=== PATIENT | female | born 1990 | race Caucasian/White ===

== ENCOUNTER 2020-01-22 10:46 | Emergency (ER) | payer MEDICAID, OTHER ==
[~2020-01-22] VITALS: Ht 162.6 cm; Wt 147.3 kg
[~2020-01-22 10:46] MED LIST: AMIT10TA6 PO; CLIN-97 PO; HYDR-4383 PO; ONDA4TAB12 PO
[2020-01-22 10:52] VITALS: BP 150/79
[2020-01-22] MEDS ORDERED: iohexol 300mg/ml 100ml inj. ONE (12:30)
[2020-01-22 13:05] LABS: BASOPHILS % (AUTO) 0.6 % (0-1); EOSINOPHILS # (AUTO) 0.1 X10'3 (0-0.9); HEMATOCRIT 34.5 % (35.0-45.0); HEMOGLOBIN 10.5 g/dl (12.0-16.0); LYMPHOCYTES # (AUTO) 1.9 X10'3 (1.1-4.8); LYMPHOCYTES % (AUTO) 29.1 % (21-51); MEAN CORPUSCULAR HEMOGLOBIN 22.2 PG (27.0-31.0); MEAN CORPUSCULAR HGB CONC 30.5 g/dL (33.0-36.5); MEAN CORPUSCULAR VOLUME 72.6 FL (78-98); MEAN PLATELET VOLUME 9.7 FL (7.4-10.4); MONOCYTES # (AUTO) 0.4 X10'3 (0-0.9); MONOCYTES % (AUTO) 6.1 % (2-12); NEUTROPHILS % (AUTO) 62.2 % (42-75); PLATELET COUNT 239 X10'3 (140-440); RED BLOOD COUNT 4.75 X10'6 (4.20-5.60); RED CELL DISTRIBUTION WIDTH 19.6 % (11.5-14.5); WHITE BLOOD COUNT 6.5 X10'3 (4.5-11.0)
[2020-01-22] MEDS ORDERED: LIDOcaine 1% W/epiNEPHrine 1:200,000 10ml vial IJ ONE (13:15)
[2020-01-22 13:21] LABS: ALANINE AMINOTRANSFERASE 41 U/L (12-78); ALBUMIN 3.5 G/DL (3.4-5.0); ALBUMIN/GLOBULIN RATIO 0.9 (1.1-1.5); ALKALINE PHOSPHATASE 76 IU/L (46-116); ANION GAP 6 (8-16); ASPARTATE AMINO TRANSFERASE 24 U/L (10-37); BILIRUBIN,TOTAL 0.5 MG/DL (0.1-1.0); BLOOD UREA NITROGEN 9 MG/DL (7-18); BUN/CREATININE RATIO 11.4 (6.6-38.0); CALCIUM 8.7 MG/DL (8.5-10.1); CHLORIDE 107 MMOL/L (99-107); CREATININE 0.79 MG/DL (0.40-0.90); GLUCOSE 94 MG/DL (70-104); SODIUM 142 MMOL/L (135-145); TOTAL CARBON DIOXIDE 28.6 MMOL/L (24-32); TOTAL PROTEIN 7.3 G/DL (6.4-8.2); eGFR 87 ML/MIN
[2020-01-22 14:06] LABS: ANISOCYTOSIS 2+; HYPOCHROMASIA 1+; PLATELET ESTIMATE NORMAL; POLYCHROMASIA FEW
[2020-01-22 14:07] LABS: ELLIPTOCYTES FEW; MICROCYTOSIS 1+
[2020-01-22 14:21] LABS: URINE HCG NEGATIVE (NEG)
[2020-01-22] MEDS ORDERED: CLIN300C54 PO (14:36)
[2020-01-22] MEDS ORDERED: HYDR-4353 PO (14:36)
== END 2020-01-22 15:27 | disposition home or self-care (01) ==
LOC: ER 10:46
DX: K04.7 Periapical abscess without sinus (principal); L02.11 Cutaneous abscess of neck; J45.909 Unspecified asthma, uncomplicated; F32.9 Major depressive disorder, single episode, unspecified; Z88.2 Allergy status to sulfonamides; Z79.899 Other long term (current) drug therapy
CPT/HCPCS: 10060; 36415; 70491; 80053; 81025; 85025; 87070; 99285; Q9967

== ENCOUNTER 2020-03-19 21:30 | Emergency (ER) | payer MEDICAID, OTHER ==
[~2020-03-19] VITALS: Ht 162.6 cm; Wt 150.0 kg
--- NOTE | 2020-03-19 22:29 | NUR ---
ATTEMPTING LINE PLACEMENT. TWO RNS HAVE ATTEMPTED WITH A THIRD RN ATTEMPTING.
[2020-03-19 22:36] LABS: URINE HCG NEGATIVE (NEG)
[2020-03-19 23:10] LABS: BASOPHILS % (AUTO) 0.6 % (0-1); EOSINOPHILS # (AUTO) 0.1 X10'3 (0-0.9); EOSINOPHILS % (AUTO) 1.9 % (0-6); HEMATOCRIT 33.5 % (35.0-45.0); HEMOGLOBIN 10.4 g/dl (12.0-16.0); LYMPHOCYTES # (AUTO) 2.1 X10'3 (1.1-4.8); LYMPHOCYTES % (AUTO) 29.7 % (21-51); MEAN CORPUSCULAR HGB CONC 30.9 g/dL (33.0-36.5); MEAN CORPUSCULAR VOLUME 74.2 FL (78-98); MEAN PLATELET VOLUME 9.7 FL (7.4-10.4); MONOCYTES # (AUTO) 0.4 X10'3 (0-0.9); MONOCYTES % (AUTO) 5.6 % (2-12); NEUTROPHILS # (AUTO) 4.4 X10'3 (1.8-7.7); NEUTROPHILS % (AUTO) 62.2 % (42-75); PLATELET COUNT 255 X10'3 (140-440); RED BLOOD COUNT 4.52 X10'6 (4.20-5.60); RED CELL DISTRIBUTION WIDTH 19.1 % (11.5-14.5); WHITE BLOOD COUNT 7.1 X10'3 (4.5-11.0)
[2020-03-19 23:11] LABS: CLARITY,URINE SLIGHTLY CLOUDY (Clear); COLOR,URINE YELLOW (Yellow); GLUCOSE, URINE NEGATIVE (Neg); KETONES,URINE NEGATIVE (Neg); LEUKOCYTE ESTERASE ,URINE NEGATIVE (Neg); NITRITES, URINE NEGATIVE (Neg); OCCULT BLOOD,URINE NEGATIVE (Neg); PH,URINE 6.5 (4.8-8.0); PROTEIN,URINE NEGATIVE (Neg); UROBILINOGEN,URINE 0.2 E.U/dL (0.2-1.0)
[2020-03-19 23:18] LABS: ALANINE AMINOTRANSFERASE 33 U/L (12-78); ALBUMIN 3.6 G/DL (3.4-5.0); ALBUMIN/GLOBULIN RATIO 0.9 (1.1-1.5); ALKALINE PHOSPHATASE 76 IU/L (46-116); ANION GAP 4 (8-16); ASPARTATE AMINO TRANSFERASE 20 U/L (10-37); BILIRUBIN,TOTAL 0.2 MG/DL (0.1-1.0); BLOOD UREA NITROGEN 12 MG/DL (7-18); BUN/CREATININE RATIO 14.6 (6.6-38.0); CHLORIDE 107 MMOL/L (99-107); CREATININE 0.82 MG/DL (0.40-0.90); GLUCOSE 100 MG/DL (70-104); POTASSIUM 3.8 MMOL/L (3.5-5.1); SODIUM 141 MMOL/L (135-145); TOTAL CARBON DIOXIDE 29.6 MMOL/L (24-32); TOTAL PROTEIN 7.5 G/DL (6.4-8.2); eGFR 83 ML/MIN
[2020-03-19 23:19] LABS: UA COLLECTION TYPE CLN CATCH MIDSTREAM
[2020-03-20 00:04] LABS: BACTERIA,URINE FEW /HPF (Neg); MUCUS STRANDS FEW /LPF (Neg); RBC,URINE NONE SEEN /HPF (0-2); SQUAMOUS EPITHELIAL CELL,UR MANY /LPF (FEW); WBC,URINE 0-4 /HPF (0-4)
[2020-03-20 00:15] VITALS: BP 135/85
[2020-03-20 03:37] LABS: ANISOCYTOSIS 2+; MICROCYTOSIS 1+; PLATELET ESTIMATE NORMAL
[2020-03-20 03:38] LABS: HYPOCHROMASIA 1+
== END 2020-03-20 00:51 | disposition home or self-care (01) ==
LOC: ER 21:31
DX: R42 Dizziness and giddiness (principal); R11.2 Nausea with vomiting, unspecified; F32.9 Major depressive disorder, single episode, unspecified; Z88.2 Allergy status to sulfonamides; Z79.2 Long term (current) use of antibiotics; Z79.899 Other long term (current) drug therapy; W18.39XA Other fall on same level, initial encounter; Y93.89 Activity, other specified; Y92.89 Other specified places as the place of occurrence of the external cause; Y99.8 Other external cause status
CPT/HCPCS: 36415; 80053; 81001; 81025; 82948; 85008; 85025; 93005; 99284

== ENCOUNTER 2020-05-14 18:30 | Emergency (ER) | payer MEDICAID, OTHER ==
[~2020-05-14] VITALS: Ht 160 cm; Wt 156.9 kg
[2020-05-14 19:15] LABS: URINE HCG NEGATIVE (NEG)
[2020-05-14 19:19] LABS: CLARITY,URINE CLOUDY (Clear); COLOR,URINE YELLOW (Yellow); GLUCOSE, URINE NEGATIVE (Neg); KETONES,URINE NEGATIVE (Neg); LEUKOCYTE ESTERASE ,URINE TRACE (Neg); OCCULT BLOOD,URINE LARGE (Neg); PROTEIN,URINE 30 mg/dl (Neg); UROBILINOGEN,URINE 0.2 E.U/dL (0.2-1.0)
[2020-05-14 19:31] LABS: NITRITES, URINE NEGATIVE (Neg); UA COLLECTION TYPE NON-SPECIFIED
[2020-05-14 19:32] LABS: BACTERIA,URINE FEW /HPF (Neg); RBC,URINE TNTC /HPF (0-2); SQUAMOUS EPITHELIAL CELL,UR FEW /LPF (FEW); WBC,URINE 0-4 /HPF (0-4)
[2020-05-14 19:32] LABS: BASOPHILS % (AUTO) 0.5 % (0-1); EOSINOPHILS # (AUTO) 0.2 X10'3 (0-0.9); EOSINOPHILS % (AUTO) 2.2 % (0-6); HEMATOCRIT 35.2 % (35.0-45.0); HEMOGLOBIN 11.1 g/dl (12.0-16.0); LYMPHOCYTES # (AUTO) 1.9 X10'3 (1.1-4.8); LYMPHOCYTES % (AUTO) 24.2 % (21-51); MEAN CORPUSCULAR HEMOGLOBIN 24.1 PG (27.0-31.0); MEAN CORPUSCULAR HGB CONC 31.6 g/dL (33.0-36.5); MEAN CORPUSCULAR VOLUME 76.3 FL (78-98); MEAN PLATELET VOLUME 9.8 FL (7.4-10.4); MONOCYTES # (AUTO) 0.4 X10'3 (0-0.9); MONOCYTES % (AUTO) 4.6 % (2-12); NEUTROPHILS # (AUTO) 5.4 X10'3 (1.8-7.7); NEUTROPHILS % (AUTO) 68.5 % (42-75); PLATELET COUNT 231 X10'3 (140-440); RED BLOOD COUNT 4.61 X10'6 (4.20-5.60); RED CELL DISTRIBUTION WIDTH 18.8 % (11.5-14.5); WHITE BLOOD COUNT 7.9 X10'3 (4.5-11.0)
[2020-05-14 20:04] LABS: CHLORIDE 107 MMOL/L (99-107); SODIUM 142 MMOL/L (135-145)
--- NOTE | 2020-05-14 21:27 | NUR ---
most recent pap test was 3 weeks ago and a trans vaginal ultrasound the 22 of April at [facility]
[2020-05-14] MEDS ORDERED: IBUP-1984 PO (21:45)
[2020-05-14] MEDS ORDERED: MEDR10TA PO (21:45)
[2020-05-14 21:54] LABS: ANION GAP 9 (8-16); BLOOD UREA NITROGEN 11 MG/DL (7-18); BUN/CREATININE RATIO 14.7 (6.6-38.0); CALCIUM 8.9 MG/DL (8.5-10.1); CREATININE 0.75 MG/DL (0.40-0.90); GLUCOSE 96 MG/DL (70-104); TOTAL CARBON DIOXIDE 26.4 MMOL/L (24-32); eGFR > 90 ML/MIN
[2020-05-14 21:55] LABS: ALANINE AMINOTRANSFERASE 36 U/L (12-78); ALBUMIN 3.7 G/DL (3.4-5.0); ALBUMIN/GLOBULIN RATIO 0.9 (1.1-1.5); ALKALINE PHOSPHATASE 76 IU/L (46-116); ASPARTATE AMINO TRANSFERASE 22 U/L (10-37); BILIRUBIN,TOTAL 0.3 MG/DL (0.1-1.0); LIPASE < 50 U/L (73-393); TOTAL PROTEIN 7.7 G/DL (6.4-8.2)
[2020-05-14] MEDS ORDERED: ketorolac trometh inj. 60 MG/2 ML VIAL IM ONE (21:55)
[2020-05-14] MEDS ORDERED: ketorolac tromethamine 15mg/ml inj. ONE (22:02)
[2020-05-14] MEDS ORDERED: ketorolac trometh. 30mg/ml inj. IM ONE (22:10)
[2020-05-14 22:40] VITALS: BP 110/65
== END 2020-05-14 22:41 | disposition home or self-care (01) ==
LOC: ER 18:32
DX: N93.8 Other specified abnormal uterine and vaginal bleeding (principal); J45.909 Unspecified asthma, uncomplicated; D64.9 Anemia, unspecified; F32.9 Major depressive disorder, single episode, unspecified; R51.9 Headache, unspecified; Z88.2 Allergy status to sulfonamides; Z79.899 Other long term (current) drug therapy
CPT/HCPCS: 36415; 80053; 81001; 81025; 83690; 85025; 87088; 96372; 99284; J1885

== ENCOUNTER 2020-06-24 18:06 | Emergency (ER) | payer MEDICAID ==
[~2020-06-24] VITALS: Ht 162.6 cm; Wt 156.8 kg
[~2020-06-24 18:06] MED LIST changes: +MEDR10TA PO
[2020-06-24] MEDS ORDERED: penicillin V potassium 500mg tablet PO ONE (19:25)
[2020-06-24] MEDS ORDERED: PENI500T2 PO (19:36)
[2020-06-24 19:40] VITALS: BP 148/85
== END 2020-06-24 19:38 | disposition home or self-care (01) ==
LOC: ER 18:07
DX: K08.89 Other specified disorders of teeth and supporting structures (principal); R68.84 Jaw pain; J45.909 Unspecified asthma, uncomplicated; F32.9 Major depressive disorder, single episode, unspecified; Z86.2 Personal history of diseases of the blood and blood-forming organs and certain disorders involving the immune mechanism; Z88.2 Allergy status to sulfonamides; Z79.2 Long term (current) use of antibiotics; Z79.899 Other long term (current) drug therapy
CPT/HCPCS: 99283

== ENCOUNTER 2020-06-27 07:44 | Emergency (ER) | payer MEDICAID ==
[~2020-06-27] VITALS: Ht 162.6 cm; Wt 156.3 kg
[~2020-06-27 07:44] MED LIST changes: +PENI500T2 PO
[2020-06-27] MEDS ORDERED: dexamethasone sod phosphate 10mg/ml inj IV STA (08:22)
[2020-06-27] MEDS ORDERED: morphine 4 MG/ML inj SYRINge IV ONE (08:25)
[2020-06-27] MEDS ORDERED: CLINDAMYCIN/D5W 900mg/50ml 50 ML IV ONE (08:25)
[2020-06-27] MEDS ORDERED: ondansetron/PF 4mg/2ml inj IV ONE (08:25)
[2020-06-27 09:36] LABS: BASOPHILS % (AUTO) 0.4 % (0-1); EOSINOPHILS # (AUTO) 0.1 X10'3 (0-0.9); EOSINOPHILS % (AUTO) 1.4 % (0-6); HEMATOCRIT 33.7 % (35.0-45.0); HEMOGLOBIN 10.6 g/dl (12.0-16.0); LYMPHOCYTES # (AUTO) 1.4 X10'3 (1.1-4.8); LYMPHOCYTES % (AUTO) 16.2 % (21-51); MEAN CORPUSCULAR HEMOGLOBIN 24.2 PG (27.0-31.0); MEAN CORPUSCULAR HGB CONC 31.6 g/dL (33.0-36.5); MEAN CORPUSCULAR VOLUME 76.5 FL (78-98); MEAN PLATELET VOLUME 9.2 FL (7.4-10.4); MONOCYTES # (AUTO) 0.5 X10'3 (0-0.9); MONOCYTES % (AUTO) 5.9 % (2-12); NEUTROPHILS # (AUTO) 6.6 X10'3 (1.8-7.7); NEUTROPHILS % (AUTO) 76.1 % (42-75); PLATELET COUNT 212 X10'3 (140-440); RED CELL DISTRIBUTION WIDTH 17.3 % (11.5-14.5); WHITE BLOOD COUNT 8.7 X10'3 (4.5-11.0)
[2020-06-27 09:48] LABS: ALANINE AMINOTRANSFERASE 90 U/L (12-78); ALBUMIN 3.1 G/DL (3.4-5.0); ALBUMIN/GLOBULIN RATIO 0.7 (1.1-1.5); ALKALINE PHOSPHATASE 81 IU/L (46-116); ANION GAP 9 (8-16); ASPARTATE AMINO TRANSFERASE 46 U/L (10-37); BILIRUBIN,TOTAL 0.4 MG/DL (0.1-1.0); BLOOD UREA NITROGEN 10 MG/DL (7-18); BUN/CREATININE RATIO 14.9 (6.6-38.0); CHLORIDE 104 MMOL/L (99-107); CREATININE 0.67 MG/DL (0.40-0.90); GLUCOSE 128 MG/DL (70-104); POTASSIUM 4.4 MMOL/L (3.5-5.1); SODIUM 137 MMOL/L (135-145); TOTAL CARBON DIOXIDE 24.4 MMOL/L (24-32); TOTAL PROTEIN 7.6 G/DL (6.4-8.2); eGFR > 90 ML/MIN
[2020-06-27 09:57] LABS: BETA HCG,QUANTITATIVE < 1.0 mIU/ml
--- NOTE | 2020-06-27 10:54 | NUR ---
called ct scan to ask why ct is delayed ?as per silvia she is next for ct scan.
[2020-06-27] MEDS ORDERED: iohexol 300mg/ml 100ml inj. ONE (10:56)
[2020-06-27] MEDS ORDERED: vancomycin/NS 1 GM ADD-VANTAGE 250 ML IV ONE (12:10)
[2020-06-27] MEDS ORDERED: METR500T PO (12:56)
[2020-06-27] MEDS ORDERED: CLIN150C2 PO (12:56)
[2020-06-27] MEDS ORDERED: METH4TAB81 PO (12:56)
[2020-06-27] MEDS ORDERED: ONDA4TAB6 PO (12:56)
[2020-06-27] MEDS ORDERED: HYDR-3965 PO (12:56)
--- NOTE | 2020-06-27 13:44 | NUR ---
NOTIFIED THE PT THAT IF SHE CAN CALL HER MOM FOR RIDE BACK HOME .PT STATED THAT SHE IS GOING TO CALL HER RGT NOW.
[2020-06-27 14:02] VITALS: BP 146/86
== END 2020-06-27 14:04 | disposition home or self-care (01) ==
LOC: ER 07:45
DX: K04.7 Periapical abscess without sinus (principal); D64.9 Anemia, unspecified; F32.9 Major depressive disorder, single episode, unspecified; J45.909 Unspecified asthma, uncomplicated; Z88.2 Allergy status to sulfonamides; Z79.899 Other long term (current) drug therapy
CPT/HCPCS: 36415; 70487; 70491; 80053; 83605; 84145; 84702; 85025; 87040; 96365; 96366; 96367; 96375; 99285; J1100; J2270; J2405; J3370; Q9967; J3490

== ENCOUNTER 2021-04-23 11:38 | Emergency (ER) | payer MEDICAID ==
[~2021-04-23] VITALS: Ht 162.6 cm; Wt 170.4 kg
[~2021-04-23 11:38] MED LIST changes: +METH4TAB81 PO; +ONDA4TAB6 PO; -PENI500T2 PO
[2021-04-23 11:45] VITALS: BP 137/74
[2021-04-23] MEDS ORDERED: NYST1000 PO (13:35)
[2021-04-23] MEDS ORDERED: AMOX-101 PO (13:35)
== END 2021-04-23 13:47 | disposition home or self-care (01) ==
LOC: ER 11:39
DX: J02.9 Acute pharyngitis, unspecified (principal); J45.909 Unspecified asthma, uncomplicated; D64.9 Anemia, unspecified; F32.9 Major depressive disorder, single episode, unspecified; Z88.2 Allergy status to sulfonamides; Z79.899 Other long term (current) drug therapy; Z20.822 Contact with and (suspected) exposure to COVID-19
CPT/HCPCS: 87635; 99283; C9803